=== PATIENT | female | born 1970 | race Caucasian/White ===

== ENCOUNTER 2017-10-24 13:53 | Emergency (ER) | payer OTHER ==
--- NOTE | 2017-10-24 14:08 | CPEKG ---
Heart Rate: 84 RR Interval: 714 P-R Interval: 188 QRSD Interval: 84 QT Interval: 352 QTC Interval: 417 P Saxon: 43 QRS Saxon: 16 T Wave Saxon: 0 EKG Severity - BORDERLINE ECG - EKG Impression: SINUS RHYTHM EKG Impression: BORDERLINE T ABNORMALITIES, INFERIOR LEADS Electronically Signed By: Codi Flores 24-Oct-2017 15:14:11
[2017-10-24 14:24] LABS: PLATELET COUNT 281 10^3/uL (150-400)
--- NOTE | 2017-10-24 14:24 | EDPHY ---
H & P Stated Complaint: mid sternal cp since 0400 Time Seen by Provider: 10/24/17 13:58 HPI/ROS: CHIEF COMPLAINT: Left-sided chest pain HISTORY OF PRESENT ILLNESS: 47-year-old female presents with left-sided chest pain. She awoke at 0400 with sharp and stabbing left-sided chest pain. The chest pain is mild and persistent. The pain increases with deep inspiration and movement. No exertional chest pain, shortness of breath, dizziness or other associated symptoms. No recent URI and no pain or swelling in legs. Cardiac risk factors negative. Nonsmoker; no family history; no hypertension, diabetes or hypercholesterolemia. REVIEW OF SYSTEMS: complete 10 point ROS negative except at noted in the HPI - Personal History LMP (Females 10-55): 22-28 Days Ago Current Tetanus Diphtheria and Acellular Pertussis (TDAP): Yes - Medical/Surgical History Hx Asthma: No Hx Chronic Respiratory Disease: No Hx Diabetes: No Hx Cardiac Disease: No Hx Renal Disease: No Hx Cirrhosis: No Hx Alcoholism: No Hx HIV/AIDS: No Hx Splenectomy or Spleen Trauma: No Other PMH: meniere's dx - Family History Significant Family History: No pertinent family hx - Social History Smoking Status: Never smoked Alcohol Use: Sober Additional Social History: - Physical Exam Exam: General Appearance: Alert, pleasant Eyes: Pupils equal and round, no conjunctival pallor ENT, Mouth: Mucous membranes moist Neck: Normal inspection Chest: normal inspection, pt tenderness left anterior c/w, reproduces pain; lungs are clear to auscultation Cardiovascular: Regular rate and rhythm Gastrointestinal: Abdomen is soft and nontender Neurological: A&O, nonfocal, normal gait Skin: Warm and dry, no rash Extremities: Nontender, no pedal edema Psychiatric: Mood and affect normal Constitutional: Initial Vital Signs Temperature (C) 36.8 C 10/24/17 13:55 Heart Rate 88 10/24/17 13:55 Respiratory Rate 16 10/24/17 13:55 Blood Pressure 149/91 H 10/24/17 13:55 O2 Sat (%) 95 10/24/17 13:55 O2 Delivery Mode Room Air Allergies/Adverse Reactions: No Known Allergies Allergy (Verified 10/24/17 13:54) Home Medications: Medication Instructions Recorded NK [No Known Home Meds] 05/26/16 Medical Decision Making - Diagnostics EKG Interpretation: EKG interpreted by me reveals normal sinus rhythm, rate 84, T wave flattening AVF. Borderline EKG. Imaging Results: Chest X-Ray 10/24/17 13:58 Impression: No significant radiographic abnormality. Specifically, a source for chest pain is not identified. Imaging: I viewed and interpreted images myself ED Course/Re-evaluation: This patient presents with atypical chest pain, c/w musculoskeletal etiology. After careful consideration and evaluation, I find no evidence of acute coronary syndrome. The patient has no risk factors for coronary disease, normal EKG and normal studies. Heart score is 0. In addition, I feel that I can safely exclude pulmonary embolism, with normal vital signs, normal oxygen saturation and normal D-dimer. PERC score negative; age less than 50, normal physical exam, no prior thromboembolism, no recent surgery, no estrogen use. In addition there is no evidence of pneumothorax, pneumonia, aortic dissection. Differential Diagnosis: Differential diagnosis includes though it is not limited to pneumonia, pneumothorax, pulmonary embolism, aortic dissection, pericarditis, acute coronary syndrome. - Data Points Laboratory Results: Laboratory Results 10/24/17 14:15 10/24/17 14:15 Medications Given: Discontinued Medications Ketorolac Tromethamine (Toradol) 15 mg IVP EDNOW ONE Stop: 10/24/17 14:59 Last Admin: 10/24/17 15:05 Dose: 15 mg Departure - Departure Disposition: Home, Routine, Self-Care Clinical Impression: Chest wall pain Condition: Good Instructions: Chest Pain (ED), Costochondritis (ED) Additional Instructions: Ibuprofen 600 mg 3 times daily while the pain persists. Return for worsening symptoms or any concerns. Referrals: Akila Yanes MD [[facility] [place] Primary Care Provider] - As per Instructions (Call to make an appointment.)
[2017-10-24] MEDS ORDERED: KETOROLAC 15 MG/1 ML SDV IVP ONE (14:58)
[2017-10-24 15:20] VITALS: BP 129/74
== END 2017-10-24 15:20 | disposition home or self-care (01) ==
DX: R07.89 Other chest pain (principal)
CPT/HCPCS: 96374; J1885